=== PATIENT | male | born 1955 | race Caucasian/White ===

== ENCOUNTER → 2017-08-14 | Outpatient (CLI) | payer BC | END | disposition home or self-care (01) | LOC: LABPAT 07:20 | PROVIDERS: ATTEND Orthopaedic Surgery | DX: Z01.812 Encounter for preprocedural laboratory examination (principal) | CPT/HCPCS: 87070 ==

== ENCOUNTER 2019-02-01 08:25 | Day surgery (SDC) | payer BC ==
[2019-01-28 12:59] VITALS: BMI 31.7
[~2019-02-01 08:25] MED LIST: LACTATED RINGERS 1,000 ML IV SCH; LIDOCAINE 1% 20 ML VIAL (10MG/ML) FOR IV START INTRADERMA PRN
[2019-02-01 08:47] VITALS: RESP 16; TEMP 97.1
[2019-02-01] MEDS ORDERED: fentaNYL (PF) 50 MCG/ML 2 ML AMP ONE (09:13)
[2019-02-01] MEDS ORDERED: MIDAZOLAM 2 MG/2 ML VIAL ONE (09:13)
[2019-02-01] MEDS ORDERED: PROPOFOL 10 MG/ML 20 ML VIAL IV ONE (09:13)
--- NOTE | 2019-02-01 09:37 | P.PCN ---
Date of Procedure: 02/01/19 Procedure(s) Performed: Procedure: Total colonoscopy. Preoperative diagnosis: History of polyps. Postoperative diagnosis: Exam within normal limits. Preparation: HalfLytely prep. Sedation: Was provided by anesthesia. Brief clinical history: The patient is 63-year-old male with history of polyps who had prior surveillance exams. His last was in 2013. The patient has no abdominal complaints, bleeding or anemia. Procedure: With the patient on his left lateral decubitus position and after informed consent and adequate sedation, the perianal area was inspected and it did not show any fissures or fistulas. There were no masses felt on digital rectal examination. The Olympus CFH 190L video colonoscope was then inserted in the rectum in the usual fashion and advanced to the cecum. The preparation was less than ideal on the right side and cecum. No obvious mucosal abnormalities, polyps or tumors were seen. I retroflexed the endoscope in the rectum before the endoscope was withdrawn. The patient tolerated the procedure well. Plan: The patient was reassured. I suggested repeat exam in 5 years because of his history. He will follow up with you as planned.
[2019-02-01 09:59] VITALS: BP 127/84; PULSE 65
== END 2019-02-01 10:17 | disposition home or self-care (01) ==
LOC: ORWHC2ENDO 08:25
DX: Z12.11 Encounter for screening for malignant neoplasm of colon (principal); Z86.010 Personal history of colon polyps; M19.90 Unspecified osteoarthritis, unspecified site; Z79.1 Long term (current) use of non-steroidal anti-inflammatories (NSAID); Z79.899 Other long term (current) drug therapy; Z88.8 Allergy status to other drugs, medicaments and biological substances; Z88.1 Allergy status to other antibiotic agents; Z91.030 Bee allergy status
CPT/HCPCS: J2250; J3010; J2704; G0105; 45378

== ENCOUNTER → 2020-03-27 | Outpatient (CLI) | payer BC ==
--- NOTE | 2020-03-28 10:10 | XR ---
EXAMINATION TYPE: XR shoulder complete RT DATE OF EXAM: 03/27/2020 CLINICAL HISTORY: pain TECHNIQUE: Three views of the right shoulder are obtained. COMPARISON: None FINDINGS: There is no acute fracture/dislocation evident. The acromioclavicular and glenohumeral justine int spaces appear within normal limits. The visualized ribs are intact and unremarkable. IMPRESSION: 1. There is no acute fracture or dislocation. ICD 10 NO FRACTURE, INITIAL EVALUATION
--- NOTE | 2020-03-28 14:46 | XR ---
EXAMINATION TYPE: XR cervical spine comp DATE OF EXAM: 03/27/2020 COMPARISON: 04/10/2010 HISTORY: Pain TECHNIQUE: Four views are submitted. FINDINGS: The odontoid is intact. There are no compression deformities. The prevertebral soft tissue structur es are within normal limits. There is multilevel severe degenerative disc disease most marked at lev els C4-C7. Multilevel facet arthropathy. Suspect multilevel foraminal encroachment. IMPRESSION: 1. Multilevel progressive severe degenerative disc disease, facet arthropathy and foraminal encroachm ent suspected. Consider MRI follow-up. 2. There is prominence of the upper mediastinum on the right only partially included on the exam. Rec ommend a chest x-ray as this appears interval change from the prior exam to exclude abnormality.
== END | disposition home or self-care (01) ==
LOC: RADXRMAIN 16:44
PROVIDERS: ATTEND Family Medicine
DX: M54.2 Cervicalgia (principal); M25.511 Pain in right shoulder
CPT/HCPCS: 72050

== ENCOUNTER → 2020-04-04 | Outpatient (CLI) | payer BC ==
--- NOTE | 2020-04-04 10:51 | XR ---
EXAMINATION TYPE: XR chest 2V DATE OF EXAM: 04/04/2020 COMPARISON: Cervical spine x-ray 03/27/2020 TECHNIQUE: PA and lateral views submitted. HISTORY: Abnormal x-ray FINDINGS: The lungs are clear and there is no pneumothorax, pleural effusion, or focal pneumonia. There is pr ominence the upper mediastinum which likely reflects ectatic vasculature. Prominence of the ascending aorta and the region of the right hilum also noted. No overt failure. Mild hypertrophic change of th e spine. IMPRESSION: 1. Finding involving the cervical spine x-ray most likely represents ectatic vasculature. Prominence of the superior right paratracheal region could be evaluated with CT scan to assess for thoracic aort ic aneurysm.
== END | disposition home or self-care (01) ==
LOC: RADXRMAIN 10:29
PROVIDERS: ATTEND Family Medicine
DX: R22.2 Localized swelling, mass and lump, trunk (principal)
CPT/HCPCS: 71046

== ENCOUNTER → 2020-04-19 | Outpatient (CLI) | payer BC ==
--- NOTE | 2020-04-19 09:48 | CT ---
EXAMINATION TYPE: CT chest w con DATE OF EXAM: 04/19/2020 COMPARISON: None HISTORY: 64-year-old male I71.2, R91.8, Abnormal chest x-ray. TECHNIQUE: Contiguous axial scanning of the chest after the administration of 100 mL of Isovue M300. Coronal/sagittal reconstructions performed. CT DLP: 620mGycm. Automatic exposure control utilized for a dose reduction. FINDINGS: Heart normal size with trace anterior basilar pericardial fluid. Aortic root measures 3.4 cm, within normal limits. Ascending aorta is ectatic at 3.8 cm. Proximal arch measures 3.3 cm. Impression large vessel branching anatomy. Upper descending thoracic aorta measures 2.9 cm. No thoracic lymphadenopathy by CT size criteria mild bilateral gynecomastia. Mild diffuse bronchial wall thickening. No consolidation or pleural effusion. A few scattered subcentimeter hepatic hypodensities too small for accurate CT characterization, likel y cysts. Visualized upper abdomen otherwise shows no gross abnormality. Bones: Moderate degenerative disc disease lower thoracic spine. IMPRESSION: 1. Mild diffuse bronchial wall thickening could represent bronchitis or asthma. 2. Ectatic ascending aorta at 3.8 cm without meredith aneurysm.
== END | disposition home or self-care (01) ==
LOC: RADCTMAIN 08:55
PROVIDERS: ATTEND Family Medicine
DX: J98.09 Other diseases of bronchus, not elsewhere classified (principal); I77.810 Thoracic aortic ectasia
CPT/HCPCS: 71260; Q9967

== ENCOUNTER → 2020-04-26 | Outpatient (CLI) | payer BC ==
--- NOTE | 2020-04-26 10:41 | MR ---
MRI CERVICAL SPINE: CLINICAL HISTORY: Chronic neck and upper back pain causing bilateral shoulder pain. TECHNIQUE: Multiplanar, multisequence imaging of the cervical spine is performed without contrast. Cervical spine x-ray March 27, 2020 COMPARISON: None. FINDINGS: Sagittal images of the cervical spine show the craniocervical junction to appear within nor mal limits. The cervical and upper thoracic spinal cord is normal in caliber and signal. Some loss o f normal cervical curvature. The vertebral body height are normal. [id number] multilevel spur ring and disc space narrowing greatest at C4-C5 and C5-C6 levels. The bone marrow signal intensity is within normal limits. Axial images at C2-C3 levels uncovertebral facet degenerative change causing mild left greater than r ight bilateral neural foraminal narrowing. Axial images at C3-C4 levels uncovertebral facet degenerative change along with tiny central disc pro trusion, there is mild to moderate left greater than right bilateral neural foraminal narrowing. Ther e is mild effacement anterior thecal sac. Axial images at C4-C5 level shows broad-based posterior disc protrusion causing moderate to severe le ft greater than right bilateral neural foraminal narrowing. Axial images at C5-C6 level shows broad-based right paracentral/foraminal disc protrusion causing adv anced right with [id number] left-sided neural foraminal narrowing as well as uncovertebral face t degenerative change also present. Axial images at C6-C7 level shows broad-based left paracentral disc protrusion effacing anterior thec al sac and causing moderate to advanced left and moderate right-sided neural foraminal narrowing. Axial images at C7-T1 level are within normal limits. Suspected right-sided thyroid nodularity partially imaged on the last axial image, this correlates wi th CT coronal image 39 isodense tissue with mass effect on right thyroid lobe, possible nodule or eugenio n parathyroid adenoma. Correlate clinically. IMPRESSION: Multilevel degenerative changes in cervical spine as detailed above. Attention to inferio r right thyroid lobe as detailed above.
== END | disposition home or self-care (01) ==
LOC: RADMRIMAIN 09:41
PROVIDERS: ATTEND Family Medicine
DX: M99.71 Connective tissue and disc stenosis of intervertebral foramina of cervical region (principal); M48.02 Spinal stenosis, cervical region; M50.21 Other cervical disc displacement, high cervical region; M47.892 Other spondylosis, cervical region
CPT/HCPCS: 72141

== ENCOUNTER → 2020-05-10 | Outpatient (CLI) | payer BC ==
--- NOTE | 2020-05-11 20:49 | NM ---
EXAMINATION TYPE: NM parathyroid w/spect DATE OF EXAM: 05/10/2020 COMPARISON: MRI cervical spine 04/26/2020 HISTORY: Hyperparathyroidism TECHNIQUE: Following administration of 24.3 mCi Tc99m Sestamibi. Anterior projection images of the neck and ches t were obtained 10 minutes and 3 hours post injection. SPECT images of the neck and chest were obtai chaim and reconstructed in three axes. FINDINGS: Thyroid tracer washout: Delayed images demonstrate near-complete tracer washout from the thyroid. Parathyroid uptake: None. The two-hour delayed images do not demonstrate any focal abnormal persisten t uptake in the region of the parathyroid glands to suggest parathyroid adenoma. Normal uptake: There is physiological tracer uptake in the myocardium, salivary glands, and thyroid g land. IMPRESSION: Normal parathyroid imaging study. No evidence for mediastinal uptake to suggest mediastinal parathyro id adenoma
== END | disposition home or self-care (01) ==
LOC: RADNMMAIN 11:46
PROVIDERS: ATTEND Family Medicine
DX: E21.3 Hyperparathyroidism, unspecified (principal)
CPT/HCPCS: 78071; A9500

== ENCOUNTER → 2020-05-21 | Outpatient (CLI) | payer BC ==
--- NOTE | 2020-05-21 13:03 | US ---
EXAMINATION TYPE: US thyroid st tissue head/neck DATE OF EXAM: 05/21/2020 COMPARISON: MR 04/26/2020 CLINICAL HISTORY: 64-year-old male E04.1 thyroid nodule. TECHNIQUE: Multiple sonographic images of the thyroid gland are obtained. FINDINGS: GLAND SIZE: Right Lobe: 5.6 x 2.4 x 1.7 cm Overall Parenchyma: heterogenous Left Lobe: 4.7 x 1.5 x 1.3 cm Overall Parenchyma: heterogeneous Isthmus Thickness: 0.3 cm NODULES RIGHT: # of nodules measured on right: 1 conglomerate nodule with extensive external and internal l obulations 1. 3.4 X 2.2 x 2.8 cm hypoechoic solid nodule at the lower pole with well-defined margins; . This nodule is wider than tall and shows intranodular vascularity. LEFT: # of nodules measured on left: 1 1. 1.1 X 0.6 x 0.8 cm hypoechoic solid nodule at the upper pole with well-defined margins; . This nodule is wider than tall and shows intranodular vascularity. ISTHMUS: # of nodules measured in the isthmus: 0 Bilateral neck scanned, no evidence of lymphadenopathy. IMPRESSION: A large conglomerate nodule at the right lower pole measuring 3.4 cm. The decision to biopsy should b e made on a clinical basis. Smaller 1.1 cm solid nodule on the left.
== END | disposition home or self-care (01) ==
LOC: RADUSWWP 10:20
PROVIDERS: ATTEND Family Medicine
DX: E04.1 Nontoxic single thyroid nodule (principal)
CPT/HCPCS: 76536

== ENCOUNTER → 2021-07-18 | Outpatient (CLI) | payer BC ==
--- NOTE | 2021-07-18 16:31 | CT ---
CT CHEST FOR PULMONARY EMBOLISM. EXAMINATION TYPE: CT angio chest DATE OF EXAM: 07/18/2021 INDICATION: AAA CT DLP: 309.8 mGycm, Automated exposure control for dose reduction was used. CONTRAST: Patient injected with 100 mL of Isovue 370. COMPARISON: 04/19/2020 TECHNIQUE: CT of the chest is performed on a spiral scan at 2 mm thick sections. Study is performed with intravenous contrast timed for evaluation for aortic aneurysm. This will limit additional porti ons of the evaluation. 3-D MIP images reconstructed by the technologist are reviewed on the computer in the coronal and sagittal planes. FINDINGS: No persistent filling defects are evident to suggest an acute pulmonary embolism. No mediastinal or hilar adenopathy enlarged by CT criteria is evident. The ascending aorta diameter at the level of the main pulmonary artery is 3.8 cm. This is stable from comparison. The main pulmon leticia artery diameter at the bifurcation is 2.3 cm. Lung windows are clear. Limited CT section through the upper abdomen are unremarkable. IMPRESSIONS: 1. No aneurysmal dilatation thoracic aorta.
--- NOTE | 2021-07-19 06:22 | US ---
EXAMINATION TYPE: US duplex aorta DATE OF EXAM: 07/18/2021 COMPARISON: None. 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 No HTN EXAM MEASUREMENTS: Abdominal Aorta: Proximal: 2.3 x 1.9 cm Mid: 2.0 x 1.9 cm Distal: 1.9 x 2.0 cm Bifurcation: Right- 1.5 x 1.4 cm Left- 1.3 x 1.3 cm No AAA visualized at time of scan Aorta is successfully visualized to the bifurcation. IMPRESSION: No ultrasound evidence for greater than 3.0 cm AAA
== END | disposition home or self-care (01) ==
LOC: RADCTMAIN 15:27
PROVIDERS: ATTEND Family Medicine
DX: I77.810 Thoracic aortic ectasia (principal)
CPT/HCPCS: 93979; 71275; Q9967

== ENCOUNTER → 2021-08-19 | Outpatient (CLI) | payer BC ==
[2021-08-19 20:35] LABS: African American GFR (CKD) 106.4 (60.0-200.0); Albumin 4.4 g/dL (3.8-4.9); Albumin/Globulin Ratio 1.48 (1.60-3.17); BUN/Creat Ratio 12.63 Ratio (12.00-20.00); Calcium 9.5 mg/dL (8.7-10.3); Carbon Dioxide 19.3 mmol/L (21.6-31.8); Globulin 2.9 g/dL (1.6-3.3); Non-African American GFR(CKD) 91.8 (60.0-200.0); Potassium 4.6 mmol/L (3.5-5.5); Total Bilirubin 0.4 mg/dL (0.30-1.20); Total Protein 7.3 g/dL (6.2-8.2)
== END | disposition home or self-care (01) ==
LOC: LABWHC1 09:18
PROVIDERS: ATTEND Internal Medicine Endocrinology, Diabetes & Metabolism
DX: E21.1 Secondary hyperparathyroidism, not elsewhere classified (principal); E03.8 Other specified hypothyroidism; E55.9 Vitamin D deficiency, unspecified
CPT/HCPCS: 36415; 80053; 82306; 83970; 84443

== ENCOUNTER → 2021-09-17 | Outpatient (CLI) | payer BC ==
--- NOTE | 2021-09-17 17:01 | US ---
EXAMINATION TYPE: US thyroid st tissue head/neck DATE OF EXAM: 09/17/2021 COMPARISON: 05/21/2020 CLINICAL HISTORY: 66-year-old male C73 Malignant neoplasm of thyroid gland. TECHNIQUE: Multiple sonographic images of the thyroid gland are obtained. FINDINGS: GLAND SIZE: Right Lobe: Surgically absent Left Lobe: 3.6 x 1.6 x 1.6 cm Overall Parenchyma: homogeneous Isthmus Thickness: 0.4 cm NODULES RIGHT: # of nodules measured on right: 0 LEFT: # of nodules measured on left: 1 1. 1.0 X 0.9 x 0.7 cm, upper mid, solid or almost completely solid, isoechoic heterogeneous nodule, which is wider than tall, with smooth margins, with echogenic foci. Prior size: 1.1 x 0.8 x 0.6 cm ISTHMUS: # of nodules measured in the isthmus: 0 Bilateral neck scanned, no evidence of lymphadenopathy. IMPRESSION: Status post right thyroidectomy. A solitary isoechoic solid nodule at the left midpole is stable 1.0 cm.
== END | disposition home or self-care (01) ==
LOC: RADUSWWP 14:17
PROVIDERS: ATTEND Internal Medicine Endocrinology, Diabetes & Metabolism
DX: C73 Malignant neoplasm of thyroid gland (principal); E89.0 Postprocedural hypothyroidism
CPT/HCPCS: 76536; 84443

== ENCOUNTER → 2022-03-12 | Outpatient (CLI) | payer BC ==
[2022-03-12 16:02] LABS: T4, Free (Free Thyroxine) 1.25 ng/dL (0.800-1.800)
== END | disposition home or self-care (01) ==
LOC: LABWHC1 10:52
PROVIDERS: ATTEND Internal Medicine Endocrinology, Diabetes & Metabolism
DX: C73 Malignant neoplasm of thyroid gland (principal)
CPT/HCPCS: 36415; 84439; 84443

== ENCOUNTER → 2022-08-29 | Outpatient (CLI) | payer MEDICARE ==
--- NOTE | 2022-08-29 15:39 | US ---
EXAMINATION TYPE: US thyroid st tissue head/neck DATE OF EXAM: 08/29/2022 COMPARISON: 09/17/2021 CLINICAL HISTORY: C73 NEOPLASM OF THYROID GLAND. thy nodule rt side removed. GLAND SIZE: Right Lobe: Surgically absent cm Overall Parenchyma: homogenous Left Lobe: 4.6 x 1.6 x 1.6 cm Overall Parenchyma: homogeneous Isthmus Thickness: 0.4 cm NODULES RIGHT: # of nodules measured on right: 0 LEFT: # of nodules measured on left: 1 1. 1.0 X .7 x .9 cm, upper mid, Prior size: 1.0 x .9 x .7 cm TIRADS Score: 3 TIRADS Category 3: Mildly Suspicious Composition: Solid or almost completely solid (2 points). Echogenicity: Hyperechoic or isoechoic (1 point). Shape: Wider than tall (0 points). Margin: Ill-defined (0 points). Echogenic foci: None or large comet-tail artifacts (0 points) Recommendation: If >2.5cm: FNA; If >1.5cm: Follow up at 1,3,5 years ISTHMUS: # of nodules measured in the isthmus: 0 Bilateral neck scanned, no evidence of lymphadenopathy. IMPRESSION: Surgically absent right thyroid gland without evidence for recurrence or residual thyroid tissue. Left thyroid nodule not significantly changed from prior. 2017 ACR TI-RADS LEVEL: TR-RADS 3 - Mildly Suspicious: Follow if > 1.5 cm, FNA if > 2.5 cm *Highest TI-RADS level nodule reported
[2022-08-29 22:52] LABS: T4, Free (Free Thyroxine) 1.25 ng/dL (0.800-1.800)
== END | disposition home or self-care (01) ==
LOC: RADUSWWP 14:56
PROVIDERS: ATTEND Internal Medicine Endocrinology, Diabetes & Metabolism
DX: C73 Malignant neoplasm of thyroid gland (principal); E04.1 Nontoxic single thyroid nodule
CPT/HCPCS: 76536; 84439; 84443; 84480

== ENCOUNTER → 2023-03-17 | Outpatient (CLI) | payer MEDICARE | END | disposition home or self-care (01) | LOC: LABWHC1 11:54 | PROVIDERS: ATTEND Internal Medicine Endocrinology, Diabetes & Metabolism | DX: C73 Malignant neoplasm of thyroid gland (principal) | CPT/HCPCS: 36415; 84443 ==

== ENCOUNTER → 2023-08-21 | Outpatient (CLI) | payer MEDICARE | END | disposition home or self-care (01) | LOC: LABWHC1 09:22 | PROVIDERS: ATTEND Family Medicine | DX: Z12.5 Encounter for screening for malignant neoplasm of prostate (principal); E78.5 Hyperlipidemia, unspecified; N52.9 Male erectile dysfunction, unspecified; E03.9 Hypothyroidism, unspecified ==

== ENCOUNTER → 2023-08-22 | Outpatient (CLI) | payer MEDICARE ==
[2023-08-22 23:16] LABS: Basophils # (A) 0.05 X 10*3/uL (0.00-0.10); Basophils % (A) 0.7 %; Eosinophils # (A) 0.13 X 10*3/uL (0.04-0.35); Eosinophils % (A) 1.9 %; HCT 47.7 % (39.6-50.0); HGB 15.4 g/dL (13.0-17.0); Lymphocytes # (A) 2.03 X 10*3/uL (0.90-5.00); Lymphocytes % (A) 30.4 %; MCH 30.2 pg (27.0-32.0); MCHC 32.3 g/dL (32.0-37.0); MCV 93.5 FL (80.0-97.0); Mean Platelet Volume 10.7 FL (9.5-12.2); Monocytes # (A) 0.56 X 10*3/uL (0.20-1.00); Monocytes % (A) 8.4 %; NRBC Per 100 WBC 0 X 10*3/uL (0.00-0.01); Neutrophils # (A) 3.86 X 10*3/uL (1.80-7.70); Platelet Count 220 X 10*3/uL (140-440); RDW 13.5 % (11.5-14.5); WBC 6.67 X 10*3/uL (4.50-10.00)
[2023-08-22 23:53] LABS: Blood Urea Nitrogen 14.4 mg/dL (9.0-27.0); Glucose 100 mg/dL (70-110); LDL Cholesterol,Calculated 121.1 mg/dL (0.0-131.0); VLDL Calculation 14.86 mg/dL (5.00-40.00)
[2023-08-22 23:54] LABS: ALT 35 U/L (10-49); AST 24 U/L (14-35); Albumin 4.4 g/dL (3.8-4.9); Albumin/Globulin Ratio 1.52 Ratio (1.60-3.17); Alkaline Phosphatase 77 U/L (41-126); Calcium 9.6 mg/dL (8.7-10.3); Chloride 102 mmol/L (96-109); Globulin 2.9 g/dL (1.6-3.3); Potassium 4.5 mmol/L (3.5-5.5); Sodium 139 mmol/L (135-145); Total Bilirubin 0.4 mg/dL (0.3-1.2); Total Protein 7.3 g/dL (6.2-8.2)
== END | disposition home or self-care (01) ==
LOC: LABWHC1 10:04
PROVIDERS: ATTEND Family Medicine
DX: Z12.5 Encounter for screening for malignant neoplasm of prostate (principal); E03.9 Hypothyroidism, unspecified; E78.5 Hyperlipidemia, unspecified; N52.9 Male erectile dysfunction, unspecified
CPT/HCPCS: 84439; 80061; 80053; 82607; 82746; 84443; 85025; 82306; 83036; 36415; G0103

== ENCOUNTER → 2023-10-07 | Outpatient (CLI) | payer MEDICARE ==
--- NOTE | 2023-10-08 22:31 | US ---
EXAMINATION TYPE: US thyroid st tissue head/neck DATE OF EXAM: 10/07/2023 COMPARISON: 2021 CLINICAL INDICATION: Male, 68 years old with history of C73 MALIGNANT NEOPLASM OF THYROID GLAND; Hx r ight thyroidectomy GLAND SIZE: Right Lobe: Surgically absent Left Lobe: 4.0 x 1.6 x 1.6 cm Overall Parenchyma: homogeneous Isthmus Thickness: 0.36 cm NODULES Right lobe thyroid surgically absent. LEFT: # of nodules measured on left: 1 1. 1.0 X 0.7 x 0.8 cm, mid , solid or almost completely solid, hypoechoic nodule, which is wider th an tall, with smooth margins, without echogenic foci. Prior size: 1.0 x 0.7 x 0.9 cm ISTHMUS: # of nodules measured in the isthmus: 0 Bilateral neck scanned, no evidence of lymphadenopathy. IMPRESSION: 1. Moderately suspicious nodule left lobe thyroid. Follow-up exam in one year is recommended. 2017 ACR TI-RADS LEVEL: TR-RADS 4 - Moderately Suspicious: Follow if > 1 cm, FNA if > 1.5 cm *Highest TI-RADS level nodule reported
== END | disposition home or self-care (01) ==
LOC: RADUSWWP 15:38
PROVIDERS: ATTEND Internal Medicine Endocrinology, Diabetes & Metabolism
DX: C73 Malignant neoplasm of thyroid gland (principal); E04.1 Nontoxic single thyroid nodule; E03.8 Other specified hypothyroidism; Z90.89 Acquired absence of other organs
CPT/HCPCS: 76536; 84443

== ENCOUNTER 2024-01-13 10:23 | Day surgery (SDC) | payer MEDICARE ==
[2024-01-13] MEDS: LACTATED RINGERS 1,000 ML IV SCH (10:45)
[2024-01-13 10:55] VITALS: TEMP 96.9
[2024-01-13] MEDS ORDERED: PROPOFOL 10 MG/ML 20 ML VIAL IV ONE (11:34)
--- NOTE | 2024-01-13 12:01 | P.PCN ---
Date of Procedure: 01/13/24 Procedure(s) Performed: BRIEF HISTORY: Patient is a 68-year-old pleasant white male scheduled for an elective colonoscopy as a part of evaluation of prior history of colon polyps. Last colonoscopy was 5 years ago. PROCEDURE PERFORMED: Colonoscopy with biopsy PREOPERATIVE DIAGNOSIS: History of colon polyps. IV sedation per Anesthesia. PROCEDURE: After informed consent was obtained, the patient, was brought into the endoscopy unit. IV sedation was administered by Anesthesia under continuous monitoring. Digital rectal examination was normal. Initially the Olympus CF-160 flexible video colonoscope was then inserted in the rectum, gradually advanced into the cecum without any difficulty. Careful examination was performed as the scope was gradually being withdrawn. Ileocecal valve and the appendiceal orifice were visualized and appeared normal. Prep was excellent. Mucosa of the cecum, small superficial isolated ulcer that was biopsied. Mucosa of the ascending colon, transverse colon,be normal. The descending colon there was a 4 mm polyp that was removed by cold biopsy. Rest of the descending colon, sigmoid colon, and rectum appeared normal. Retroflexion was performed in the rectum and no lesions were seen. The patient tolerated the procedure well. IMPRESSION: 4 mm descending colon polyp status post cold biopsy Small superficial isolated cecal ulcer status post biopsy RECOMMENDATIONS: Findings of this examination were discussed with the patient as well as his family.he was advised to follow with the biopsy. The biopsies adenoma he can have a repeat colonoscopy in 5 years.
[2024-01-13 13:07] VITALS: BP 147/84; PULSE 52; RESP 14
== END 2024-01-13 12:45 | disposition home or self-care (01) ==
LOC: ORWHC2ENDO 10:23
PROVIDERS: ATTEND Internal Medicine Gastroenterology
DX: Z12.11 Encounter for screening for malignant neoplasm of colon (principal); K63.5 Polyp of colon; K63.3 Ulcer of intestine; E03.9 Hypothyroidism, unspecified; I10 Essential (primary) hypertension; Z86.010 Personal history of colon polyps; Z88.1 Allergy status to other antibiotic agents; Z88.6 Allergy status to analgesic agent; Z79.890 Hormone replacement therapy; Z90.89 Acquired absence of other organs; Z98.890 Other specified postprocedural states; Z79.899 Other long term (current) drug therapy
CPT/HCPCS: 45380; J2704; 88305

== ENCOUNTER → 2024-09-06 | Outpatient (CLI) | payer MEDICARE ==
--- NOTE | 2024-09-06 15:29 | US ---
EXAMINATION TYPE: US thyroid st tissue head/neck DATE OF EXAM: 09/06/2024 COMPARISON: Thyroid ultrasound 10/07/2023, 08/29/2022, 09/17/2021 CLINICAL INDICATION: Male, 69 years old with history of C73 MALIGNANT CISCO OF THYROID GLAND; Right lob e removed 2019. TECHNIQUE: Grayscale and color Doppler imaging of the thyroid gland. FINDINGS: GLAND SIZE: Right Lobe: Surgically absent Left Lobe: 4.0 x 1.5 x 1.6 cm Overall Parenchyma: homogeneous Isthmus Thickness: .4 cm NODULES RIGHT: # of nodules measured on right: 0 LEFT: # of nodules measured on left: 1 1. 1.0 X .7 x 1.0 cm, upper lateral, solid or almost completely solid, hypoechoic nodule, which is wider than tall, with smooth margins, without echogenic foci. TR 4. Prior size: 1.0 x .7 x .8 cm ISTHMUS: # of nodules measured in the isthmus: 0 Bilateral neck scanned, no evidence of lymphadenopathy. IMPRESSION: 1. Surgical absent right thyroid gland without evidence for recurrent or residual thyroid tissue. 2. Stable left thyroid lobe 1 cm TR 4 nodule. [facility], , 09/06/2024 3:27 PM
[2024-09-06 19:09] LABS: T4, Free (Free Thyroxine) 1.29 ng/dL (0.80-1.80)
== END | disposition home or self-care (01) ==
LOC: RADUSWWP 14:45
PROVIDERS: ATTEND Internal Medicine Endocrinology, Diabetes & Metabolism
DX: C73 Malignant neoplasm of thyroid gland (principal); E04.1 Nontoxic single thyroid nodule
CPT/HCPCS: 76536; 84439; 84443